=== PATIENT | male | born 1965 | race Caucasian/White ===

== ENCOUNTER 2021-04-04 10:02 | Emergency (ER) | payer BC ==
[~2021-04-04] VITALS: Ht 167.6 cm; Wt 79.0 kg
[2021-04-04 10:34] VITALS: BP 128/90
[2021-04-04] MEDS ORDERED: KETOROLAC 60 MG/2 ML VIAL. IM ONE (11:00)
--- NOTE | 2021-04-04 11:21 | PHYS DOC ---
Past History Additional Past Medical Histor: r elbow fractures (TERE RAMOS) Past Surgical History: No Surgical History (TERE RAMOS) Alcohol Use: None (TERE RAMOS) General Adult EDM: Chief Complaint: ELBOW PROBLEM HPI: HPI: Patient is a 55 year old male who presents with right elbow pain. Patient reports that yesterday, he was moving large sheets of plywood with his arm fully extended, and the rest of the word resting on his shoulder. 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 He now reports right hand swelling as well. Patient states he has broken his elbow twice in the past, over 20 years ago. He has no abrasions or lacerations. Patient has no other trauma, injury or pain. (TERE RAMOS) Review of Systems: Review of Systems: Constitutional: Denies fever, chills or generalized weakness Eyes: Denies change in visual acuity, visual field deficits or discharge HENT: Denies ear pain, nasal congestion or sore throat Respiratory: Denies cough or shortness of breath Cardiovascular: Denies chest pain, palpitations or edema GI: Denies abdominal pain, nausea, vomiting, bloody stools or diarrhea : Denies dysuria or hematuria Musculoskeletal: See HPI Integument: See HPI Neurologic: Denies headache, focal weakness or sensory changes (TERE RAMOS) Current Medications: Current Meds: Current Medications Medications (Trade) Dose Ordered Sig/[facility] Start Time Stop Time Status Last Admin Dose Admin Ketorolac Tromethamine (Toradol Im) 60 mg 1X ONCE 04/04/21 11:00 04/04/21 11:01 DC (TERE RAMOS) Allergies: Allergies: Allergies Coded Allergies Type Severity Reaction Last Updated Verified No Known Drug Allergies 04/04/21 No (TERE RAMOS) Physical Exam: PE: Constitutional: Well developed, well nourished, no acute distress, non-toxic appearance. Cardiovascular: Heart rate regular rhythm, no murmur. Lungs & Thorax: Bilateral breath sounds clear to auscultation. Skin: Warm, dry, no erythema, no rash, no abrasion, no laceration. Extremities: Right elbow with posterior swelling and tenderness, soft compartments, right hand nonpitting edema, vocational education teacher strength 5/5 bilaterally, radial pulses 2+ and symmetrical, cap refill less than 2 seconds. Extremities otherwise no tenderness, no cyanosis, no clubbing, ROM intact, no edema. Neurologic: Alert and oriented x4, steady and symmetrical gait, no focal deficits noted. (TERE RAMOS) Current Patient Data: Vital Signs: Vital Signs Date Time Temp Pulse Resp B/P (MAP) Pulse Ox O2 Delivery O2 Flow Rate FiO2 04/04/21 10:34 98.5 61 18 128/90 (103) 98 (TERE RAMOS) Radiology/Procedures: Radiology/Procedures: XR ELBOW COMPLETE_RIGHT 3+ VIEWS, XR FOREARM_RIGHT 2 VIEWS Clinical Indication: Reason: pain after trauma / Spl. Instructions: / History: Comparison: None. Findings: There is no acute fracture or dislocation. No evidence of joint effusion. There are mild degenerative changes. There is no radiopaque foreign body. The soft tissues are normal. No acute fracture of the radius or ulna. No obvious deformity of the wrist. No soft tissue swelling of the forearm. IMPRESSION: No acute fracture. Electronically signed by: Micha Romero MD (04/04/2021 11:46 AM) [id number] (TERE RAMOS) Heart Score: C/O Chest Pain: No (TERE RAMOS) Course & Med Decision Making: Course & Med Decision Making Pertinent Labs and Imaging studies reviewed. (See chart for details) Patient is a 55-year-old male with right elbow pain that began yesterday while carrying large pieces of plywood. Patient reports he has broken the elbow twice before. Work-up today will include plain films. Patient counseled on advantages and limitations to x-ray imaging. He was provided with Toradol in the department for pain control. No acute fracture or dislocation is seen on x-ray images. Patient counseled on RICE therapy for joint injuries. He was given return precautions and orthopedic contact information for follow-up. Patient understands and is agreeable to discharge plan. (TERE RAMOS) Course & Med Decision Making I was the Attending physician on the above date of service of this patient. This patient was evaluated, examined, treated, and dispositioned from the emergency department by the mid-level practitioner. Although I was working at the time , no assistance was requested. Electronically signed, Pilar Keating DO (PILAR KEATING DO) Ana Laura Disclaimer: Ana Laura Disclaimer: This electronic medical record was generated, in whole or in part, using a voice recognition dictation system. (TERE RAMOS) Departure Departure: Impression: Primary Impression: Strain of elbow, right Qualified Codes: S46.911A - Strain of unspecified muscle, fascia and tendon at shoulder and upper arm level, right arm, initial encounter Disposition: HOME / SELF CARE / HOMELESS Condition: STABLE Referrals: PCP,NO (PCP) [facility] Patient Instructions: RICE - Routine Care for Injuries, [id number] Additional Instructions: EMERGENCY DEPARTMENT GENERAL DISCHARGE INSTRUCTIONS Thank you for coming to [facility] (ED) today and trusting us with you care. We trust that you had a positivie experience in our Emergency Department. If you wish to speak to the department management, you may call the director at . YOUR FOLLOW UP INSTRUCTIONS ARE FOLLOWS: 1. Do you have a private doctor? If you do not have a private doctor, please ask for a resource list of physicians or clinics that may be able to assist you with follow up care. 2. The Emergency Physician has interpreted your x-rays. The X-Ray specialist will also review them. If there is a change in the findings, you will be notified in 48 hours when at all possible. 3. Take [id number] NSAIDs such as Advil (ibuprofen) or Aleve (naproxen) for pain control. Keep your hand above the level of your heart to prevent dependent edema (swelling). ADDITIONAL INSTRUCTIONS AND INFORMATION: 1. Your care today has been supervised by a physician who is specially trained in emergency care. Many problems require more than one evaluation for a complete diagnosis and treatment. We recommend that you schedule your follow up appointment as recommended to ensure complete treatment of you illness or injury. If you are unable to obtain follow up care and continue to have a problem, or if your condition worsens, we recommend that you return to the ED. 2. We are not able to safely determine your condition over the phone nor are we able to give sound medical advice over the phone. For these safety reasons, if you call for medical advice we will ask you to come to the ED for further evaluation. 3. If you have any questions regarding these discharge instructions please call the ED at . SAFETY INFORMATION: In the interest of safety, wellness, and injury prevention; we encourage you to wear your seat belt, if you smoke; quite smoking, and we encourage family to use a protective helmet for bicycling and other sporting events that present an increased risk for head injury. IF YOUR SYMPTOMS WORSEN OR NEW SYMPTOMS DEVELOP, OR YOU HAVE CONCERNS ABOUT YOUR CONDITION; OR IF YOUR CONDITION WORSENS WHILE YOU ARE WAITING FOR YOUR FOLLOW UP APPOINTMENT; EITHER CONTACT YOUR PRIMARY CARE DOCTOR, THE PHYSICIAN WHOSE NAME AND NUMBER YOU WERE GIVEN, OR RETURN TO THE ED IMMEDIATELY. TERE RAMOS Apr 04, 2021 11:21 PILAR KEATING DO Apr 05, 2021 06:40
--- NOTE | 2021-04-04 11:48 | RAD ---
XR ELBOW COMPLETE_RIGHT 3+ VIEWS, XR FOREARM_RIGHT 2 VIEWS Clinical Indication: Reason: pain after trauma / Spl. Instructions: / History: Comparison: None. Findings: There is no acute fracture or dislocation. No evidence of joint effusion. There are mild degenerative changes. There is no radiopaque foreign body. The soft tissues are normal. No acute fracture of the radius or ulna. No obvious deformity of the wrist. No soft tissue swelling o f the forearm. IMPRESSION: No acute fracture. Electronically signed by: Micha Romero MD (04/04/2021 11:46 AM) [id number]
== END 2021-04-04 12:25 | disposition home or self-care (01) ==
LOC: ER 10:02
DX: S46.911A Strain of unspecified muscle, fascia and tendon at shoulder and upper arm level, right arm, initial encounter (principal); X50.0XXA Overexertion from strenuous movement or load, initial encounter; Y93.89 Activity, other specified; Y92.89 Other specified places as the place of occurrence of the external cause; Y99.8 Other external cause status
CPT/HCPCS: 73080; 73090; 96372; 99284; J1885